=== PATIENT | female | born 1995 | race Two or more races ===

== ENCOUNTER 2017-06-12 17:10 | Emergency (ER) | payer MEDICAID, OTHER ==
[2017-06-12] MEDS ORDERED: KETOROLAC TROMETHAMINE INJ/PF 30 MG/1 ML SDV IM ONE (17:43)
--- NOTE | 2017-06-12 17:46 | ER Document Report ---
HPI - HPI Pain Level: 4 Notes: Patient is a 21-year-old female with no significant past medical history who presents to the ED complaining of left rib/chest pain 1 week without known precipitating event. 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 Patient states that she has increased pain with a cough, sneeze, and apply pressure to the rib/chest wall. Patient states that the pain does not radiate and is there constantly. She has not had any medicines for her symptoms. She denies any drug allergies. She denies any smoking or IV drug use. She denies any prolonged immobilization, distance travel, hormone replacement, diabetes, cancer, previous DVT/PE, or recent surgery/trauma. Pt is ambulatory w/o any worsening symptoms or FLORNECE. No PND. Denies any headache, fever, neck pain, URI, sore throat, palpitations, syncope, cough, shortness of breath, wheeze, dyspnea, abdominal pain, nausea/vomiting/diarrhea, urinary retention, dysuria, hematuria, back pain, loss of control of bowel or bladder, numbness/tingling, saddle anesthesia, muscle paralysis/weakness, or rash. - ROS Systems Reviewed and Negative: Yes All other systems reviewed and negative Past Medical History - Social History Smoking Status: Never Smoker Family History: Reviewed & Not Pertinent Vertical Provider Document - CONSTITUTIONAL Agree With Documented VS: Yes Notes: PHYSICAL EXAMINATION: GENERAL: Well-appearing, well-nourished and in no acute distress. A&Ox4. Answers questions appropriately. HEAD: Atraumatic, normocephalic. EYES: Pupils equal round and reactive to light, extraocular movements intact, sclera anicteric, conjunctiva are normal. ENT: EAC clear b/l. TM's intact b/l without erythema, fluid, or perforation. Nares patent and without discharge. oropharynx clear without exudates. No tonsilar hypertrophy or erythema. Moist mucous membranes. No sinus tenderness. NECK: Normal range of motion, supple without lymphadenopathy Chest: + tenderness to the left chest wall/ribs on the left lateral side ( correlates with pain described). equal rise/fall. No flail chest. LUNGS: Breath sounds clear to auscultation bilaterally and equal. No wheezes rales or rhonchi. HEART: Regular rate and rhythm without murmurs, rubs, gallops. ABDOMEN: Soft, nontender, nondistended abdomen. No guarding, no rebound. No masses appreciated. Normal bowel sounds present. No CVA tenderness bilaterally. Musculoskeletal: FROM to passive/active. Strength 5+/5. Jonathan neg. No calf erythema/swelling/tenderness b/l. Extremities: No cyanosis, clubbing, or edema b/l. Peripheral pulses 2+. Capillary refill less than 3 seconds. NEUROLOGICAL: Cranial nerves grossly intact. Normal speech, normal gait. Normal sensory, motor exams PSYCH: Normal mood, normal affect. SKIN: Warm, Dry, normal turgor, no rashes or lesions noted. - INFECTION CONTROL TRAVEL OUTSIDE OF THE [place] IN LAST 30 DAYS: No - RESPIRATORY O2 Sat by Pulse Oximetry: 100 Course - Re-evaluation Re-evalutation: 06/12/17 19:45 Patient is an afebrile, well-hydrated, 21-year-old female who presents to the ED with chest wall pain, suspect inflammatory based on H&P today. Vitals are acceptable. PE is unremarkable aside from chest wall tenderness or correlates the pain described. Patient has no significant cardiopulmonary medical history. Patient has not been tachycardic, hypoxic, nor tachypneic. Chest x- ray/rib showed prominence of the pulmonary artery suggestive of possible pulmonary hypertension, I suspect that this may be an over read versus incidental finding. Patient has remained asymptomatic and does not have any cardiac symptoms aside from the chest wall pain that is reproducible on exam. Patient does not have any lower extremity edema. EKG was unremarkable for any acute pathology. Patient has a PERC score of 0 and a well score of 0. No other labs or imaging warranted at this time based on H&P. I did review this case with Dr. rodriguez who is in agreement with disposition and follow-up as an outpatient with a cyber systems administrator and outpatient echocardiogram. Low suspicion for any ACS, PE, pneumothorax, pericarditis, dissection, respiratory compromise , severe dehydration, sepsis, meningitis, fracture, or other systemic emergent condition at this time. Patient is aware that her condition can change from initial presentation and she needs to monitor symptoms closely and seek medical attention for any acute changes. Toradol was given IM today. Recommend conservative measures for symptoms. Recheck with your PCM in 3-5 days. Return to the ED with any worsening/concerning symptoms otherwise as reviewed in discharge. Patient is in agreement. Outpatient labs and echocardiogram ordered for patient. Pt to call Dr. Santos's office tomorrow to set up a f/u. Also provided Dr. De Oliveira's information. - Vital Signs Vital signs: Temp Pulse Resp BP Pulse Ox 98.7 F 94 14 113/47 L 100 06/12/17 17:20 06/12/17 17:20 06/12/17 17:20 06/12/17 17:20 06/12/17 17:20 Discharge - Discharge Clinical Impression: Chest wall pain, Pulmonary artery anomaly Condition: Stable Disposition: HOME, SELF-CARE Instructions: Chest Wall Pain ([facility]) Additional Instructions: Rest, Ice Tylenol/ibuprofen as needed Light stretches daily Strength exercises as able Moist heat and massage may help F/u with your PCP in 3-5 days for a recheck Consider consult(s) with Orthopedics/physical therapy for ongoing/worsening symptoms Return to the ED with any worsening symptoms and/or development of fever, headache, chest pain, palpitations, syncope, shortness of breath, trouble breathing, abdominal pain, n/v/d, muscle weakness/paralysis, numbness/tingling, swelling, redness, or other worsening symptoms that are concerning to you. Prescriptions: Naproxen 500 mg PO BID PRN #30 tablet PRN Reason: Forms: Follow-Up Laboratory Testing, Follow-Up Radiology Testing Referrals: [facility] [Provider Group] - Follow up as needed KATHRINE SANTOS MD [ACTIVE STAFF] - Follow up in 3-5 days PIOTR DE OLIVEIRA MD [EMERITUS] - Follow up in 3-5 days
--- NOTE | 2017-06-12 19:25 | RADIOLOGY REPORT (SQ) ---
EXAM DESCRIPTION: RIBS LEFT W/PA CHEST COMPLETED DATE/TIME: 06/12/2017 6:27 pm REASON FOR STUDY: left rib/chest wall pain COMPARISON: None. TECHNIQUE: Frontal view of the chest and additional views of the left ribs acquired. NUMBER OF VIEWS: Three view. LIMITATIONS: None. FINDINGS: FRONTAL CXR: No pneumothorax. No pleural effusion. No atelectasis or infiltrates. There is prominence of the main pulmonary artery. RIBS: No displaced rib fractures. OTHER: A Nexplanon device is seen in the soft tissues of the left upper arm. IMPRESSION: 1. No pneumothorax. No displaced left rib fractures. 2. Prominence of the main pulmonary artery, may be seen with pulmonary artery hypertension. Please correlate with clinical history. COMMENT: SITE OF TRAUMA/COMPLAINT MARKED/STAMP COMPLETED: NO. TECHNICAL DOCUMENTATION: JOB ID: [id number] [employer]- All Rights Reserved Reading location - IP/workstation name: [email or web address]
[2017-06-12 20:15] VITALS: BP 111/58
--- NOTE | 2017-06-12 20:20 | EKG REPORT ---
SEVERITY:- NORMAL ECG - SINUS RHYTHM : Confirmed by: Ollie De Oliveira MD 12-Jun-2017 20:19:25
== END 2017-06-12 19:55 | disposition home or self-care (01) ==
LOC: ER 17:10
DX: R07.9 Chest pain, unspecified (principal); R07.81 Pleurodynia; Q25.79 Other congenital malformations of pulmonary artery
CPT/HCPCS: 93005; 99283; 96372; 71101; 93010; J1885

== ENCOUNTER → 2017-06-13 | Outpatient (CLI) | payer OTHER ==
[2017-06-13 16:05] LABS: HEMATOCRIT 37.3 % (36.0-47.0); HEMOGLOBIN 12.1 g/dL (12.0-15.5); MEAN CORPUSCULAR HEMOGLOBIN 26.3 pg (27.0-33.4); MEAN CORPUSCULAR HGB CONC 32.4 g/dL (32.0-36.0); MEAN CORPUSCULAR VOLUME 81 fl (80-97); PLATELET COUNT 241 10^3/uL (150-450); RED BLOOD COUNT 4.58 10^6/uL (3.72-5.28); RED CELL DISTRIBUTION WIDTH 14.4 % (11.5-14.0)
[2017-06-13 16:14] LABS: APPEARANCE,URINE CLEAR; BILIRUBIN,URINE NEGATIVE (NEGATIVE); COLOR,URINE COLORLESS; GLUCOSE, URINE NEGATIVE (NEGATIVE); KETONES,URINE NEGATIVE (NEGATIVE); LEUKOCYTE ESTERASE,URINE NEGATIVE (NEGATIVE); NITRITE,URINE NEGATIVE (NEGATIVE); PROTEIN,URINE NEGATIVE (NEGATIVE); URINE SPECIFIC GRAVITY 1.004; UROBILINOGEN,URINE NEGATIVE mg/dL (<2.0)
[2017-06-13 16:25] LABS: ALANINE AMINOTRANSFERASE 24 U/L (9-52); ALBUMIN 4.2 g/dL (3.5-5.0); ALKALINE PHOSPHATASE 49 U/L (38-126); ANION GAP 11 (5-19); ASPARTATE AMINO TRANSFERASE 17 U/L (14-36); BILIRUBIN,DIRECT 0.3 mg/dL (0.0-0.4); BILIRUBIN,TOTAL 0.3 mg/dL (0.2-1.3); BLOOD UREA NITROGEN 14 mg/dL (7-20); CALCIUM 9.1 mg/dL (8.4-10.2); CARBON DIOXIDE 22 mmol/L (22-30); CHLORIDE 105 mmol/L (98-107); CREATINE KINASE 85 U/L (30-135); GLUCOSE 79 mg/dL (75-110); TOTAL PROTEIN 7.2 g/dL (6.3-8.2)
[2017-06-13 16:37] LABS: CREATINE KINASE MB 0.35 ng/mL (<4.55)
[2017-06-13 16:42] LABS: NT PRO BNP < 11 pg/mL (<125); TROPONIN I < 0.012 ng/mL
== END ==
LOC: LAB 15:42
PROVIDERS: ATTEND Physician Assistant Medical
DX: R07.89 Other chest pain (principal)
CPT/HCPCS: 36415; 80053; 81001; 82550; 82553; 83880; 84484; 85027

== ENCOUNTER 2017-06-15 14:56 | Emergency (ER) | payer OTHER ==
--- NOTE | 2017-06-15 16:33 | ER Document Report ---
ED Medical Screen (RME) - General Chief Complaint: Chest Wall Pain Stated Complaint: CHEST PAINS Time Seen by Provider: 06/15/17 16:27 Notes: Patient was recently here 3 days ago and diagnosed with possible pulmonary artery hypertension. She has not been able to follow-up. She continues to have chest pain and shortness of breath. Patient does use Nexplanon. TRAVEL OUTSIDE OF THE [place] IN LAST 30 DAYS: No - Related Data Allergies/Adverse Reactions: No Known Allergies Allergy (Unverified 06/12/17 17:11) Past Medical History - Social History Frequency of alcohol use: None Drug Abuse: None Renal/ Medical History: Denies: Hx Peritoneal Dialysis Past Surgical History: Reports: Hx Gynecologic Surgery - tubal preg w/surg Physical Exam - Vital signs Vitals: Temp Pulse Resp BP Pulse Ox 99.2 F 96 15 97/35 L 99 06/15/17 15:10 06/15/17 15:10 06/15/17 15:10 06/15/17 15:10 06/15/17 15:10 Course - Vital Signs Vital signs: Temp Pulse Resp BP Pulse Ox 99.2 F 96 15 97/35 L 99 06/15/17 15:10 06/15/17 15:10 06/15/17 15:10 06/15/17 15:10 06/15/17 15:10
[2017-06-15 17:04] LABS: ABSOLUTE EOSINOPHILS # (AUTO) 0.2 10^3/uL (0.0-0.6); ABSOLUTE LYMPHOCYTES (AUTO) 2.2 10^3/uL (0.5-4.7); ABSOLUTE MONOCYTES (AUTO) 0.5 10^3/uL (0.1-1.4); ABSOLUTE NEUT (AUTO) 3.5 10^3/uL (1.7-8.2); BASOPHILS % (AUTO) 0.3 % (0-2); EOSINOPHILS % (AUTO) 2.8 % (0-6); HEMATOCRIT 39.2 % (36.0-47.0); HEMOGLOBIN 12.6 g/dL (12.0-15.5); LYMPHOCYTES % (AUTO) 34.2 % (13-45); MEAN CORPUSCULAR HEMOGLOBIN 26.2 pg (27.0-33.4); MEAN CORPUSCULAR HGB CONC 32.2 g/dL (32.0-36.0); MEAN CORPUSCULAR VOLUME 81 fl (80-97); MONOCYTES % (AUTO) 7.2 % (3-13); PLATELET COUNT 258 10^3/uL (150-450); RED BLOOD COUNT 4.82 10^6/uL (3.72-5.28); RED CELL DISTRIBUTION WIDTH 14.5 % (11.5-14.0); SEGMENTED NEUTROPHILS % (AUTO) 55.5 % (42-78); TOTAL CELLS COUNTED % (AUTO) 100 %; WHITE BLOOD COUNT 6.4 10^3/uL (4.0-10.5)
[2017-06-15 17:15] LABS: ALANINE AMINOTRANSFERASE 20 U/L (9-52); ALBUMIN 4.3 g/dL (3.5-5.0); ALKALINE PHOSPHATASE 57 U/L (38-126); AMORPHOUS SEDIMENT,URINE TRACE /HPF; ANION GAP 9 (5-19); APPEARANCE,URINE SLIGHTLY-CLOUDY; ASPARTATE AMINO TRANSFERASE 14 U/L (14-36); BILIRUBIN,DIRECT 0.3 mg/dL (0.0-0.4); BILIRUBIN,TOTAL 0.3 mg/dL (0.2-1.3); BILIRUBIN,URINE NEGATIVE (NEGATIVE); BLOOD UREA NITROGEN 9 mg/dL (7-20); CALCIUM 9.6 mg/dL (8.4-10.2); CARBON DIOXIDE 26 mmol/L (22-30); CHLORIDE 108 mmol/L (98-107); COLOR,URINE YELLOW; GLUCOSE 89 mg/dL (75-110); GLUCOSE, URINE NEGATIVE (NEGATIVE); KETONES,URINE NEGATIVE (NEGATIVE); LEUKOCYTE ESTERASE,URINE NEGATIVE (NEGATIVE); NITRITE,URINE NEGATIVE (NEGATIVE); POTASSIUM 4.5 mmol/L (3.6-5.0); PROTEIN,URINE NEGATIVE (NEGATIVE); SODIUM 143.4 mmol/L (137-145); TOTAL PROTEIN 7.4 g/dL (6.3-8.2); URINE SPECIFIC GRAVITY 1.014; UROBILINOGEN,URINE NEGATIVE mg/dL (<2.0)
--- NOTE | 2017-06-15 22:01 | RADIOLOGY REPORT (SQ) ---
EXAM DESCRIPTION: CTA CHEST COMPLETED DATE/TIME: 06/15/2017 9:42 pm REASON FOR STUDY: cp, sob COMPARISON: None. TECHNIQUE: CT scan of the chest performed using helical scanning technique with dynamic intravenous contrast injection. Images reviewed with lung, soft tissue and bone windows. Reconstructed coronal and sagittal MPR images reviewed. Additional 3 dimensional post-processing performed to develop Maximal Intensity Projection images ([place] P). All images stored on PACS. All CT scanners at this facility use dose modulation, iterative reconstruction, and/or weight based d osing when appropriate to reduce radiation dose to as low as reasonably achievable (ALARA). [facility]: Dose Right [facility]: CareDose [facility]: Dose Right [facility]: Teradose 4D [facility]: [employer] CONTRAST TYPE AND DOSE: contrast/concentration: Isovue 370.00 mg/ml; Total Contrast Delivered: 60.0 ml; Total Saline Delivered: 50.0 ml Contrast bolus optimized for the pulmonary arteries. Not diagnostic for the aorta. RENAL FUNCTION: BUN 9 creatinine 0.5 RADIATION DOSE: CT Rad equipment meets quality standard of care and radiation dose reduction techniq ues were employed. CTDIvol: 3.3 - 14.3 mGy. DLP: 531 mGy-cm. . LIMITATIONS: Sub optimal opacification of the pulmonary arteries. FINDINGS: LUNGS AND PLEURA: No masses, infiltrates, pneumothorax. No pleural effusions, calcificati ons. AORTA AND GREAT VESSELS: No aneurysm. No dissection. HEART: No pericardial effusion. No significant coronary artery calcifications. PULMONARY ARTERIES: No emboli visualized in the main pulmonary arteries or the segmental branches. HILAR AND MEDIASTINAL STRUCTURES: No identified masses or abnormal nodes. HARDWARE: None in the chest. UPPER ABDOMEN: No significant findings. Limited exam. THYROID AND OTHER SOFT TISSUES: No masses. No adenopathy. BONES: No acute or significant finding. 3D MIPS: Confirm above findings. OTHER: No other significant finding. IMPRESSION: Study is slightly limited. No evidence of pulmonary emboli in the main pulmonary arteri es or major subsegmental branches. COMMENT: Quality ID # [id number]: Final reports with documentation of one or more dose reduction techniques (e.g., Automated exposure control, adjustment of the mA and/or kV according to patient size, use of iterative reconstruction technique) TECHNICAL DOCUMENTATION: JOB ID: [id number] [employer]- All Rights Reserved Reading location - IP/workstation name: [email or web address]
--- NOTE | 2017-06-15 22:28 | ER Document Report ---
ED General - General Chief Complaint: Chest Wall Pain Stated Complaint: CHEST PAINS Time Seen by Provider: 06/15/17 16:27 Mode of Arrival: Ambulatory Information source: Patient Notes: This is a 21-year-old female that presents to the emergency room with chest wall pain For the past 2 weeks. Patient states that she has a sensation of shortness of breath as well. Patient is on control. She denies smoking. She does not have any family history for pulmonary embolism. She does report that she had an x-ray a week ago and they had mentioned that there was some abnormality of the pulmonary artery TRAVEL OUTSIDE OF THE [place] IN LAST 30 DAYS: No - HPI Onset: Last week Onset/Duration: Gradual Quality of pain: Sharp Severity: Moderate Pain Level: 2 Associated symptoms: Chest pain. denies: Chills, Fever Exacerbated by: Movement Relieved by: Remaining still Similar symptoms previously: Yes Recently seen / treated by doctor: Yes - Related Data Allergies/Adverse Reactions: No Known Allergies Allergy (Unverified 06/12/17 17:11) Past Medical History - General Information source: Patient - Social History Smoking Status: Never Smoker Cigarette use (# per day): No Chew tobacco use (# tins/day): No Frequency of alcohol use: None Drug Abuse: None Lives with: Family Family History: Reviewed & Not Pertinent Patient has suicidal ideation: No Patient has homicidal ideation: No - Medical History Medical History: Negative Renal/ Medical History: Denies: Hx Peritoneal Dialysis Past Surgical History: Reports: Hx Gynecologic Surgery - tubal preg w/surg Review of Systems - Review of Systems Constitutional: denies: Chills, Fever EENT: No symptoms reported Cardiovascular: No symptoms reported Respiratory: No symptoms reported Gastrointestinal: No symptoms reported Genitourinary: No symptoms reported Female Genitourinary: No symptoms reported Musculoskeletal: See HPI Skin: No symptoms reported Hematologic/Lymphatic: No symptoms reported Neurological/Psychological: No symptoms reported Physical Exam - Vital signs Vitals: Temp Pulse Resp BP Pulse Ox 99.2 F 96 15 97/35 L 99 06/15/17 15:10 06/15/17 15:10 06/15/17 15:10 06/15/17 15:10 06/15/17 15:10 Notes: Physical exam: GENERAL: 21-year-old female, alert and oriented 3, no acute distress HEAD: Atraumatic, normocephalic. EYES: Pupils equal round and reactive to light, extraocular movements intact, sclera anicteric, conjunctiva are normal. ENT: TMs normal, nares patent, oropharynx clear without exudates. Moist mucous membranes. NECK: Normal range of motion, supple without obvious mass or JVD. LUNGS: Breath sounds clear to auscultation bilaterally and equal. No wheezes rales or rhonchi. HEART: Regular rate and rhythm without murmurs, rubs or gallops. ABDOMEN: Soft, normoactive bowel sounds. No tenderness to palpation. No guarding, no rebound. No masses appreciated. EXTREMITIES: Normal range of motion, no pitting or edema. No clubbing or cyanosis. NEUROLOGICAL: Cranial nerves II through XII grossly intact. Normal speech, moving all extremities. PSYCH: Normal mood, normal affect. SKIN: Warm, Dry, normal turgor, no rashes or lesions noted. Course - Vital Signs Vital signs: Temp Pulse Resp BP Pulse Ox 98.5 F 80 18 110/59 L 99 06/15/17 22:35 06/15/17 22:35 06/15/17 22:35 06/15/17 22:35 06/15/17 22:35 - Laboratory Result Diagrams: 06/15/17 16:50 06/15/17 16:50 Laboratory results interpreted by me: 06/15/17 06/15/17 16:50 16:50 MCH 26.2 L RDW 14.5 H Chloride 108 H Creatinine 0.49 L - Diagnostic Test Radiology reviewed: Image reviewed, Reports reviewed - CT does not show any evidence a pulmonary embolus. There does not appear to be any abnormality of the pulmonary artery. - EKG Interpretation by Me Rate: Normal Rhythm: NSR - EKG shows sinus rhythm with a ventricular rate of 97, no acute ST- T wave changes Discharge - Discharge Clinical Impression: Pleurisy Condition: Stable Disposition: HOME, SELF-CARE Instructions: Anti-Inflammatory Medication ([facility]), Chest Wall Pain ([facility]), Pleurisy ([facility]) Additional Instructions: As we discussed, the CAT scan showed no evidence of blood clot in there was no obvious abnormalities of the pulmonary structures. Your lab results look good. I will continue the Naprosyn as prescribed and follow-up with a primary care doctor. As always, return to the emergency room for worsening pain, worsening shortness of breath or any concerns or getting worse. Thank you for choosing [facility] for your care. The examination and treatment you have received in the Emergency Department today has been rendered on an emergency basis only and is not intended to be a substitute for complete medical care. You should contact your doctor as it is important that she/he examine you for any new or remaining problems. If given a copy of any lab tests or radiology reports, please bring them with you when you see your physician. Primary Care Doctor's affiliated with [facility]: If you do not have a primary care doctor or you are unable to get an appointment during that time, you can try one of the doctor's below. These are internal medicine doctor's that have admitting priveledges to the hospital ( they will see you both in the office as well as in this hospital if you are ever hospitalized here). Dr. Chan Christianson [address], [place] [address] [phone] Dr Matt Address: [address], [place] [address] Dr Morgan Address: [address], [place] [address] If you don't have insurance: follow-up at the [facility] which is a free clinic. [address], [address] [place] [phone] Forms: Return to Work
[2017-06-15 23:01] VITALS: BP 110/59
--- NOTE | 2017-06-15 23:04 | EKG REPORT ---
SEVERITY:- BORDERLINE ECG - SINUS RHYTHM BORDERLINE T ABNORMALITIES, ANTERIOR LEADS : Confirmed by: Eric Santos 15-Jun-2017 23:03:44
== END 2017-06-15 22:34 | disposition home or self-care (01) ==
LOC: ER 14:56
DX: R09.1 Pleurisy (principal); R07.89 Other chest pain; R06.02 Shortness of breath; Z79.3 Long term (current) use of hormonal contraceptives
CPT/HCPCS: 36415; 71275; 80053; 81001; 81025; 85025; 85379; 93005; 93010; 99284

== ENCOUNTER 2017-10-31 13:15 | Emergency (ER) | payer OTHER | END 2017-10-31 13:21 | disposition left against medical advice (07) | LOC: ER 13:15 | DX: Z53.21 Procedure and treatment not carried out due to patient leaving prior to being seen by health care provider (principal) ==

== ENCOUNTER 2017-11-02 12:45 | Emergency (ER) | payer OTHER ==
[2017-11-02 13:10] VITALS: BP 116/49
--- NOTE | 2017-11-02 14:39 | ER Document Report ---
ED General - General Chief Complaint: Shortness Of Breath Stated Complaint: SHORTNESS OF BREATH, VOMITING Time Seen by Provider: 11/02/17 14:25 Notes: Patient presents with approximately 1 month of shortness of breath while walking. Patient performs a lot of walking for her job. She states that she is also been having reductive cough over the last 3 weeks. Denies any sinus congestion. Denies any known medical problems and no history of sudden in the family. Denies any leg swelling or recent long trips. Denies any chest pain but does feel in her mid chest tightness at times. No history of blood clots in her lungs or legs. TRAVEL OUTSIDE OF THE [place] IN LAST 30 DAYS: No - Related Data Allergies/Adverse Reactions: No Known Allergies Allergy (Verified 11/02/17 12:47) Past Medical History - Social History Smoking Status: Never Smoker Family History: Reviewed & Not Pertinent Renal/ Medical History: Denies: Hx Peritoneal Dialysis Past Surgical History: Reports: Hx Gynecologic Surgery - tubal preg w/surg Review of Systems - Review of Systems Constitutional: No symptoms reported EENT: No symptoms reported Cardiovascular: No symptoms reported Respiratory: See HPI Gastrointestinal: No symptoms reported Genitourinary: No symptoms reported Female Genitourinary: No symptoms reported Musculoskeletal: No symptoms reported Skin: No symptoms reported Hematologic/Lymphatic: No symptoms reported Neurological/Psychological: No symptoms reported Physical Exam - Vital signs Vitals: Temp Pulse Resp BP Pulse Ox 99.4 F 91 20 116/49 L 100 11/02/17 13:05 11/02/17 13:05 11/02/17 13:05 11/02/17 13:05 11/02/17 13:05 - General General appearance: Appears well, Alert - HEENT Head: Normocephalic, Atraumatic - Respiratory Respiratory status: No respiratory distress Chest status: Nontender Breath sounds: Normal, Nonproductive cough. No: Rhonchi, Stridor, Wheezing Chest palpation: Normal - Cardiovascular Rhythm: Regular Heart sounds: Normal auscultation Murmur: No - Abdominal Inspection: Normal - Back Back: Normal - Neurological Orientation: AAOx4 - Psychological Associated symptoms: Normal affect Course - Re-evaluation Re-evalutation: 11/02/17 15:22 Chest x-ray shows no acute findings. Patient signs and symptoms of been going on for weeks. Patient's symptoms consistent with likely viral bronchitis. Will provide 5 day steroid Dosepak and albuterol puffer. Return precautions provided to follow-up in 1 week if symptoms are worsening or any development of fever. - Vital Signs Vital signs: Temp Pulse Resp BP Pulse Ox 99.4 F 91 20 116/49 L 100 11/02/17 13:05 11/02/17 13:05 11/02/17 13:05 11/02/17 13:05 11/02/17 13:05 - Diagnostic Test Radiology reviewed: Image reviewed Radiology results interpreted by me: 11/02/17 15:22 NAD Discharge - Discharge Clinical Impression: Bronchitis Condition: Good Disposition: HOME, SELF-CARE Instructions: Bronchitis ([facility]) Additional Instructions: Please seek medical reevaluation in one week if symptoms are not improving. Prescriptions: Albuterol Sulfate [Proair HFA Inhalation Aerosol 8.5 gm MDI] 2 puff IH Q4H PRN # 1 mdi PRN Reason: Prednisone [Deltasone 20 mg Tablet] 40 mg PO DAILY 5 Days #10 tablet
--- NOTE | 2017-11-02 15:22 | RADIOLOGY REPORT (SQ) ---
EXAM DESCRIPTION: CHEST 2 VIEWS COMPLETED DATE/TIME: 11/02/2017 2:58 pm REASON FOR STUDY: cough, sob COMPARISON: PA chest 06/12/2017 CT angio chest 06/15/2017 EXAM PARAMETERS: NUMBER OF VIEWS: two views TECHNIQUE: Digital Frontal and Lateral radiographic views of the chest acquired. RADIATION DOSE: NA LIMITATIONS: none FINDINGS: LUNGS AND PLEURA: No opacities, masses or pneumothorax. No pleural effusion. MEDIASTINUM AND HILAR STRUCTURES: No masses or contour abnormalities. HEART AND VASCULAR STRUCTURES: Heart normal size. No evidence for failure. BONES: No acute findings. HARDWARE: None in the chest. OTHER: No other significant finding. IMPRESSION: NO ACUTE RADIOGRAPHIC FINDING IN THE CHEST. TECHNICAL DOCUMENTATION: JOB ID: [id number] [employer]- All Rights Reserved Reading location - IP/workstation name: [email or web address]
== END 2017-11-02 16:12 | disposition home or self-care (01) ==
LOC: ER 12:45
DX: J40 Bronchitis, not specified as acute or chronic (principal); R06.02 Shortness of breath; R05 Cough; R07.89 Other chest pain
CPT/HCPCS: 71046; 99284

== ENCOUNTER 2018-12-04 07:40 | Emergency (ER) | payer MEDICAID, OTHER ==
[2018-12-04] MEDS ORDERED: IPRATROPIUM/ALBUTEROL 0.5-2.5 MG/3 ML AMPUL NEB ONE (09:26)
[2018-12-04] MEDS ORDERED: ONDANSETRON 4 MG TAB.RAPDIS PO ONE (09:26)
[2018-12-04] MEDS ORDERED: PSEUDOEPHEDRINE HCL 30 MG TABLET PO ONE (09:26)
--- NOTE | 2018-12-04 10:09 | RADIOLOGY REPORT (SQ) ---
EXAM DESCRIPTION: CHEST 2 VIEWS COMPLETED DATE/TIME: 12/04/2018 9:55 am REASON FOR STUDY: cough COMPARISON: 11/02/2017 EXAM PARAMETERS: NUMBER OF VIEWS: two views TECHNIQUE: Digital Frontal and Lateral radiographic views of the chest acquired. RADIATION DOSE: NA LIMITATIONS: none FINDINGS: LUNGS AND PLEURA: No opacities, masses or pneumothorax. No pleural effusion. MEDIASTINUM AND HILAR STRUCTURES: No masses or contour abnormalities. HEART AND VASCULAR STRUCTURES: Heart normal size. No evidence for failure. BONES: No acute findings. HARDWARE: None in the chest. OTHER: No other significant finding. IMPRESSION: NO ACUTE RADIOGRAPHIC FINDING IN THE CHEST. TECHNICAL DOCUMENTATION: JOB ID: [id number] [employer]- All Rights Reserved Reading location - IP/workstation name: [email or web address]
--- NOTE | 2018-12-04 10:26 | ER Document Report ---
HPI - HPI Patient complains to provider of: Cough Time Seen by Provider: 12/04/18 09:09 Onset: Other - 1 month Onset/Duration: Persistent Quality of pain: Achy Pain Level: 1 Context: Patient presents complaining of cough for the past month with sore throat. Patient states that occasionally she will feel nauseous and vomit due to her throat discomfort. Patient has not vomited any today. Patient denies any abdominal tenderness. Patient denies any ear pain or fever. Associated Symptoms: Nonproductive cough, Vomiting. denies: Earache, Fever Exacerbated by: Denies Relieved by: Denies Similar symptoms previously: No Recently seen / treated by doctor: No - ROS ROS below otherwise negative: Yes Systems Reviewed and Negative: Yes All other systems reviewed and negative - CONSTITUTIONAL Constitutional: DENIES: Fever, Chills - EENT EENT: REPORTS: Sore Throat. DENIES: Ear Pain - NEURO Neurology: DENIES: Headache - RESPIRATORY Respiratory: REPORTS: Coughing. DENIES: Trouble Breathing - GASTROINTESTINAL Gastrointestinal: REPORTS: Patient vomiting. DENIES: Abdominal Pain - REPRODUCTIVE Reproductive: DENIES: : - MUSCULOSKELETAL Musculoskeletal: DENIES: Extremity pain, Back Pain - DERM Skin Color: Normal Skin Problems: None Past Medical History - General Information source: Patient - Social History Smoking Status: Never Smoker Frequency of alcohol use: None Drug Abuse: None Occupation: none Family History: Reviewed & Not Pertinent Patient has suicidal ideation: No Patient has homicidal ideation: No - Medical History Medical History: Negative Renal/ Medical History: Denies: Hx Peritoneal Dialysis Past Surgical History: Reports: Hx Gynecologic Surgery - ectopic preg w/surg Vertical Provider Document - CONSTITUTIONAL Agree With Documented VS: Yes Exam Limitations: No Limitations General Appearance: WD/WN, No Apparent Distress - INFECTION CONTROL TRAVEL OUTSIDE OF THE [place] IN LAST 30 DAYS: No - HEENT HEENT: Atraumatic, Normocephalic, Pharyngeal Tenderness. negative: Pharyngeal Exudate, Pharyngeal Erythema, Tympanic Membrane Red, Tympanic Membrane Bulging - NECK Neck: Normal Inspection, Supple. negative: Lymphadenopathy-Left, Lymphadenopathy-Right - RESPIRATORY Respiratory: No Respiratory Distress, Chest Non-Tender, Wheezing - with cough only. negative: Rales - CARDIOVASCULAR Cardiovascular: Regular Rate, Regular Rhythm, No Murmur - BACK Back: Normal Inspection - MUSCULOSKELETAL/EXTREMETIES Musculoskeletal/Extremeties: MAEW - NEURO Level of Consciousness: Awake, Alert, Appropriate Motor/Sensory: No Motor Deficit - DERM Integumentary: Warm, Dry, No Rash Course - Re-evaluation Re-evalutation: 12/04/18 10:22 Respirations even unlabored, patient nontoxic in appearance. No concern for pneumonia or pneumothorax. Will treat symptomatically at this time. - Vital Signs Vital signs: Temp Pulse Resp BP Pulse Ox 98.8 F 88 16 124/63 95 12/04/18 07:51 12/04/18 07:51 12/04/18 07:51 12/04/18 07:51 12/04/18 07:51 - Laboratory Laboratory results interpreted by me: 12/04/18 10:23 Labs- Entire Visit 12/04/18 09:24 Group A Strep Rapid NEGATIVE - Diagnostic Test Radiology reviewed: Reports reviewed Discharge - Discharge Clinical Impression: Bronchitis, Nausea, Sore throat Condition: Stable Disposition: HOME, SELF-CARE Instructions: Bronchitis With Bronchospasm (Wheezing) ([facility]), Nausea or Vomiting, Nonspecific ([facility]), Sore Throat ([facility]) Additional Instructions: Return immediately for any new or worsening symptoms Followup with your primary care provider, call tomorrow to make a followup appointment Prescriptions: Prednisone [Deltasone 10 mg Tablet] 10 mg PO ASDIR PRN #21 tablet PRN Reason: Albuterol Sulfate [Proair Hfa Inhalation Aerosol 8.5 gm Mdi] 2 puff IH Q4 PRN #1 mdi PRN Reason: Ondansetron HCl [Zofran 4 mg Tablet] 1 - 2 tab PO Q6 PRN #15 tablet PRN Reason: [facility]errals[facility] - Follow up as needed
[2018-12-04 10:45] VITALS: BP 117/60
== END 2018-12-04 10:40 | disposition home or self-care (01) ==
LOC: ER 07:40
DX: J40 Bronchitis, not specified as acute or chronic (principal); J02.9 Acute pharyngitis, unspecified; R11.0 Nausea
CPT/HCPCS: 94640; 99283; 87070; 87880; 71046; S0119; J7620